=== PATIENT | male | born 1945 | race Caucasian/White ===

== ENCOUNTER → 2017-04-20 | Outpatient (CLI) | payer OTHER ==
[~2017-04-20] MED LIST: GADOBUTROL 10 ML VIAL IVP ONE
== END ==
LOC: FIMAGING 09:45
PROVIDERS: ATTEND Physician Assistant
DX: D32.0 Benign neoplasm of cerebral meninges (principal)
CPT/HCPCS: 70553; A9585

== ENCOUNTER 2017-11-19 07:42 | Emergency (ER) | payer OTHER ==
[2017-11-19 07:48] VITALS: BP 213/99
--- NOTE | 2017-11-19 08:24 | EDPHY ---
H & P Stated Complaint: R finger lac Time Seen by Provider: 11/19/17 08:18 HPI/ROS: CHIEF COMPLAINT: Finger tip amputation HISTORY OF PRESENT ILLNESS: The patient is a 72-year-old man who was cooking last night and cut off the tip of his left middle finger. No bony involvement, no finger nail involvement. He wrapped it bandages. This morning when he took the bandages off it began bleeding again. He denies other injuries. REVIEW OF SYSTEMS: Constitutional: denies: chills, fever, recent illness, recent injury EENTM: denies: blurred vision, double vision, nose congestion Respiratory: denies: cough, shortness of breath Cardiac: denies: chest pain, irregular heart rate, lightheadedness, palpitations Gastrointestinal/Abdominal: denies: abdominal pain, diarrhea, nausea, vomiting, blood streaked stools Genitourinary: denies: dysuria, frequency, hematuria, pain Musculoskeletal: See above Skin: See above Neurological: denies: headache, numbness, paresthesia, tingling, dizziness, weakness Hematologic/Lymphatic: denies: blood clots, easy bleeding, easy bruising Immunologic/allergic: denies: HIV/AIDS, transplant EXAM: GENERAL: Well-appearing, well-nourished and in no acute distress. HEAD: Atraumatic, normocephalic. EYES: Pupils equal round and reactive to light, extraocular movements intact, sclera anicteric, conjunctiva are normal. ENT: TMs normal, nares patent, oropharynx clear without exudates. Moist mucous membranes. NECK: Normal range of motion, supple without lymphadenopathy or JVD. LUNGS: Breath sounds clear to auscultation bilaterally and equal. No wheezes rales or rhonchi. HEART: Regular rate and rhythm without murmurs, rubs or gallops. ABDOMEN: Soft, nontender, normoactive bowel sounds. No guarding, no rebound. No masses appreciated. BACK: No CVA tenderness, no spinal tenderness, step-offs or deformities EXTREMITIES: Normal range of motion, no pitting or edema. No clubbing or cyanosis. Left middle finger tip amputation. Does not involve the bone or fingernail. Just tuft. Mild bruising. Clean NEUROLOGICAL: Cranial nerves II through XII grossly intact. Normal speech, normal gait. 5/5 strength, normal movement in all extremities, normal sensation PSYCH: Normal mood, normal affect. SKIN: See above Source: Patient - Personal History Current Tetanus/Diphtheria Vaccine: Yes - Medical/Surgical History Hx Asthma: No Hx Chronic Respiratory Disease: No Hx Diabetes: No Hx Cardiac Disease: No Hx Renal Disease: No Hx Cirrhosis: No Hx Alcoholism: No Hx HIV/AIDS: No Hx Splenectomy or Spleen Trauma: No Other PMH: high cholesterol - Family History Significant Family History: No pertinent family hx - Social History Smoking Status: Never smoked Alcohol Use: Sober Drug Use: None Constitutional: Initial Vital Signs Temperature (C) 36.6 C 11/19/17 07:47 Heart Rate 67 11/19/17 07:47 Respiratory Rate 18 11/19/17 07:47 Blood Pressure 213/99 H 11/19/17 07:47 O2 Sat (%) 95 11/19/17 07:47 O2 Delivery Mode Room Air Allergies/Adverse Reactions: No Known Allergies Allergy (Unverified 11/19/17 07:45) Home Medications: Medication Instructions Recorded Lipitor 11/19/17 Medical Decision Making ED Course/Re-evaluation: The patient has a finger tip amputation. It was cleaned and dressed with Surgicel and adapt take and sterile gauze. I instructed him to leave this in place for 24 hr. He is happy with this plan and declines further workup or testing at this time . Differential Diagnosis: Partial list of the Differential diagnosis considered include but were not limited to; laceration, amputation and although unlikely based on the history and physical exam, I also considered bony injury, foreign body, nail bed injury. I discussed these differential diagnoses and the plan with the patient as well as the usual and expected course. The patient understands that the diagnosis is provisional and that in medicine we are not always correct and that further workup is often warranted. Usual and customary warnings were given. All of the patient's questions were answered. The patient was instructed to return to the emergency department should the symptoms at all worsen or return, otherwise to followup with the physician as we discussed. Departure - Departure Disposition: Home, Routine, Self-Care Clinical Impression: Amputation of finger tip Qualifiers: Encounter type: initial encounter Qualified Code(s): S68.129A - Partial traumatic metacarpophalangeal amputation of unspecified finger, initial encounter Condition: Fair Instructions: Finger Amputation (ED) Additional Instructions: Leave bandages in place for 24 hr or more. Carefully change bandages as discussed. Return if bleeding is uncontrolled. Referrals: Umu Phillips MD [Primary Care Provider] - As per Instructions
== END 2017-11-19 08:36 | disposition home or self-care (01) ==
DX: S68.123A Partial traumatic metacarpophalangeal amputation of left middle finger, initial encounter (principal); W45.8XXA Other foreign body or object entering through skin, initial encounter; Y99.8 Other external cause status; Y93.G3 Activity, cooking and baking